=== PATIENT | female | born 1955 | race Caucasian/White ===

== ENCOUNTER 2021-09-21 22:18 | Emergency (ER) | payer MEDICARE, OTHER ==
[~2021-09-21 22:18] MED LIST: 3 IN 1 COMMODE XX; ADVAIR 250-501 EACH INH; ALPRAZOLAM0.5 MG PO; AMOXICILLIN500 MG PO; ASPIRIN81 MG PO; CLARITHROMYCIN500 MG PO; CLARITIN10 MG PO; ENOXAPARIN40 MG/0.4 SC; FLONASE 0.05% N16 GM; IPRAT-ALBUT 0.5-3 ML INH; KLONOPIN TAB 00.5 MG PO; MORPHINE SU4 MG/1 ML IVP; NICOTINE PATCH1 EAC1 TD; NICOTINE PATCH1 EAC1 TOP; PAROXETINE HCL30 MG PO; PAXIL20 MG PO; PREVACID30 MG PO; PROAIR HFA8.5 GM INH; SOLUMEDROL INJ125 MG IVP
[2021-09-21 23:27] LABS: HEMOGLOBIN 12.9 gm/dl (12.3-15.3); RED BLOOD COUNT 4.09 M/UL (4.00-5.10); WHITE BLOOD COUNT 6.9 K/UL (4.5-11.0)
[2021-09-21 23:50] LABS: BUN/CREATININE RATIO 13 (0-10)
== END 2021-09-22 03:45 | disposition left against medical advice (07) ==
LOC: ER1 22:18
PROVIDERS: Physician Assistant
DX: R07.9 Chest pain, unspecified (principal); R06.02 Shortness of breath; F17.200 Nicotine dependence, unspecified, uncomplicated; J44.9 Chronic obstructive pulmonary disease, unspecified; I10 Essential (primary) hypertension
CPT/HCPCS: 71045; 80053; 82550; 82553; 83874; 83880; 84484; 85025; 85610; 85730; 93005; 99284

== ENCOUNTER 2022-02-08 09:18 | Observation (INO) | payer MEDICARE, OTHER ==
[~2022-02-08] VITALS: Ht 162.6 cm; Wt 49.4 kg
[2022-02-08 10:26] LABS: HEMOGLOBIN 13.5 gm/dl (12.3-15.3); RED BLOOD COUNT 4.26 M/UL (4.00-5.10); WHITE BLOOD COUNT 7.6 K/UL (4.5-11.0)
[2022-02-08 11:11] LABS: BUN/CREATININE RATIO 10 (0-10)
[2022-02-08] MEDS ORDERED: VITAMIN D21250 MCG PO (15:25)
[2022-02-08] MEDS ORDERED: LEVOCETIRIZINE D5 MG PO (15:26)
[2022-02-08] MEDS ORDERED: ATORVASTATIN CA40 MG PO (15:27)
[2022-02-08] MEDS ORDERED: MONTELUKAST SOD10 MG PO (15:27)
[2022-02-08] MEDS ORDERED: SYMBICORT 160-1 INHA INH (15:28)
[2022-02-08] MEDS ORDERED: AZELASTINE137 MCG/0. INH (15:28)
[2022-02-08] MEDS ORDERED: BUPROPION HCL150 MG PO (15:30)
[2022-02-08] MEDS ORDERED: HYDROCHLOROTHIA25 MG PO (15:31)
[2022-02-08] MEDS ORDERED: VITAMIN E100 UNI2 PO (15:33)
[2022-02-08] MEDS ORDERED: VITAMIN B-121000 MC3 PO (15:34)
[2022-02-08] MEDS ORDERED: ZINC50 M1 PO (15:34)
[2022-02-08] MEDS ORDERED: POTASSIUM GLUCO99 MG PO (15:35)
--- NOTE | 2022-02-08 20:32 | NUR ---
Notified Dr. Pretty that patient wanted to leave against medical advise. Notified Building Principal Susy ALMONTE that patient wanted to leave against medical advice. Patient educated on the need to stay for treatment, but patient stated she had the same stuff at home to take care of herself. I counsled the patient and told her that if she felt like she was getting worse, to come back in through the ER. Patient verbalized understanding.
== END 2022-02-08 21:09 | disposition left against medical advice (07) ==
LOC: ER1 09:18 → CDU 13:26 → M/S 13:26
PROVIDERS: ADMIT Internal Medicine
DX: J44.1 Chronic obstructive pulmonary disease with (acute) exacerbation (principal); U07.1 COVID-19; J96.11 Chronic respiratory failure with hypoxia; Z99.81 Dependence on supplemental oxygen; I25.2 Old myocardial infarction; F17.210 Nicotine dependence, cigarettes, uncomplicated; Z95.2 Presence of prosthetic heart valve; Z79.01 Long term (current) use of anticoagulants; Z91.14 Patient's other noncompliance with medication regimen; Z79.82 Long term (current) use of aspirin; Z79.899 Other long term (current) drug therapy; Z53.29 Procedure and treatment not carried out because of patient's decision for other reasons; Z82.49 Family history of ischemic heart disease and other diseases of the circulatory system
CPT/HCPCS: 0240U; 36600; 71045; 80053; 82550; 82553; 82803; 83605; 84484; 85025; 87040; 93005; 94640; 94664; 94760; 96374; 99285; G0378; J0248; J0696; J1100; J1650; J2930; J7030; U0002